=== PATIENT | female | born 1950 | race Caucasian/White ===

== ENCOUNTER 2017-12-26 12:21 | Emergency (ER) | payer MEDICARE, OTHER | END 2017-12-26 13:36 | disposition home or self-care (01) | LOC: FTE 12:21 | DX: Z48.02 Encounter for removal of sutures (principal) | CPT/HCPCS: 99281 ==

== ENCOUNTER → 2018-10-03 | Outpatient (CLI) | payer MEDICARE, OTHER | END | disposition home or self-care (01) | LOC: HKI 09:49 | DX: M25.562 Pain in left knee (principal) | CPT/HCPCS: 73564 ==